=== PATIENT | female | born 1960 | race Caucasian/White ===

== ENCOUNTER 2020-04-30 17:47 | Inpatient (IN) ==
[2020-04-30] MEDS ORDERED: DILTIAZEM 50 MG/10 ML VIAL IV STA ×2 (18:24→20:19)
[2020-04-30] MEDS ORDERED: DILTIAZEM 25 MG/5 ML VIAL IV ONE (18:29)
[2020-04-30 18:36] LABS: Basophils # 0.1 10*3/uL (0.0-0.2); Basophils % 0.5 % (0.0-0.8); Eosinophils % 0.3 % (0.00-10.9); Hematocrit 36.4 VOL% (35.7-47.0); Hemoglobin 11.4 GM/DL (12.0-16.0); Immature Granulocytes % 0.5 %; Immature Granulocytes Absolute 0.06 #; Lymphocytes # 3.3 10*3/uL (1.4-4.0); Lymphocytes % 25.9 % (21.3-54.2); Mean Corpuscular HGB Conc 31.3 GM/DL (32-36); Mean Corpuscular Volume 86.9 FL (87-102); Mean Platelet Volume 9.9 FL (9.6-12.0); Monocytes % 10.5 % (1.7-12.7); NRBC # 0.05 10*3/uL; Neutrophils % 62.3 % (38.7-73.9); Platelet Count 454 T/CUMM (130-400); Red Blood Count 4.19 MC/CUMM (3.8-5.5); Red Cell Distribution Width 15.7 % (9.3-17.3); White Blood Count 12.8 T/CUMM (4-12)
[2020-04-30 18:44] LABS: INR 1.1; PT Patient Result 11.8 SECS (9.8-11.9)
[2020-04-30 19:02] LABS: Albumin 3.5 G/DL (3.4-5.0); Bilirubin,Total 0.8 MG/DL (0.2-1.0); Calcium 9.1 MG/DL (8.5-10.1); Osmolality,Calculated 268.2 MOS/KG (273-304); Thyroid Stimulating Hormone 3.12 uIU/ml (0.358-3.74)
[2020-04-30] MEDS: dilTIAZem INJ 125 MG in SODIUM CHLORIDE 0.9% 125 MG/100 ML BAG IV SCH (19:07)
[2020-04-30] MEDS ORDERED: DEXTROSE 50% 25 GM/50 ML VIAL IV PRN (20:01)
[2020-04-30] MEDS ORDERED: GLUCAGON 1 MG VIAL IM PRN (20:01)
[2020-04-30 20:17] LABS: Barbiturates Screen,Urine Negative (Negative); Benzodiazepines Screen,Urine Negative (Negative); Cannabinoid Screen,Urine Negative (Negative); Opiate Screen,Urine Positive (Negative); Phencyclidine Screen,Urine Negative (Negative)
[2020-04-30] MEDS ORDERED: amLODIPine 5 MG TABLET PO ONE (20:37)
[2020-04-30] MEDS ORDERED: cloNIDine 0.1 MG TABLET PO PRN (20:37)
[2020-04-30] MEDS: methylPREDNISolone SOD SUC 40 MG/1 ML VIAL IV SCH (21:15)
[2020-04-30] MEDS: ENOXAPARIN 80 MG/0.8 ML SYRINGE SUBCUT SCH (21:20)
[2020-04-30] MEDS: LEVOFLOXACIN INJ 750 MG in PREMIX 1 EACH IV SCH (21:23)
[2020-04-30] MEDS ORDERED: ACETAMINOPHEN 325 MG TABLET PO PRN (23:38)
[2020-04-30] MEDS ORDERED: LEVALBUTEROL 1.25 MG/3 ML NEB RESP TX PRN (23:38)
[2020-05-01] MEDS: ALBUTEROL/IPRATROPIUM 3 ML NEB RESP TX SCH ×4 (00:05→20:38)
[2020-05-01] MEDS: dilTIAZem INJ 125 MG in SODIUM CHLORIDE 0.9% 125 MG/100 ML BAG IV SCH ×3 (01:54→23:39)
[2020-05-01] MEDS: methylPREDNISolone SOD SUC 40 MG/1 ML VIAL IV SCH ×3 (04:34→23:09)
[2020-05-01 06:48] LABS: Basophils % 0.1 % (0.0-0.8); Hematocrit 34.6 VOL% (35.7-47.0); Hemoglobin 11.1 GM/DL (12.0-16.0); Immature Granulocytes % 0.6 %; Immature Granulocytes Absolute 0.05 #; Lymphocytes # 0.7 10*3/uL (1.4-4.0); Lymphocytes % 7.7 % (21.3-54.2); Mean Corpuscular HGB Conc 32.1 GM/DL (32-36); Mean Corpuscular Volume 86.7 FL (87-102); Mean Platelet Volume 9.7 FL (9.6-12.0); Monocytes % 2.4 % (1.7-12.7); NRBC # 0.02 10*3/uL; Neutrophils % 89.2 % (38.7-73.9); Platelet Count 388 T/CUMM (130-400); Red Blood Count 3.99 MC/CUMM (3.8-5.5); Red Cell Distribution Width 15.8 % (9.3-17.3); White Blood Count 9.1 T/CUMM (4-12)
[2020-05-01 07:14] LABS: Calcium 9.2 MG/DL (8.5-10.1); Risk Ratio 2.53; Thyroid Stimulating Hormone 0.454 uIU/ml (0.358-3.74); VLDL CHOLESTEROL 14.2 MG/DL
[2020-05-01] MEDS: ENOXAPARIN 80 MG/0.8 ML SYRINGE SUBCUT SCH ×2 (09:05→23:10)
[2020-05-01] MEDS ORDERED: ONDANSETRON 4 MG/2 ML VIAL IV PRN (09:11)
[2020-05-01] MEDS: MORPHINE 4 MG/1 ML VIAL IV PRN ×2 (17:57→23:15)
[2020-05-01] MEDS: LEVOFLOXACIN INJ 750 MG in PREMIX 1 EACH IV SCH (23:09)
[2020-05-02] MEDS: ALBUTEROL/IPRATROPIUM 3 ML NEB RESP TX SCH ×4 (00:27→19:05)
[2020-05-02] MEDS: methylPREDNISolone SOD SUC 40 MG/1 ML VIAL IV SCH ×3 (05:59→21:28)
[2020-05-02 06:16] LABS: Basophils % 0.1 % (0.0-0.8); Hematocrit 34.4 VOL% (35.7-47.0); Hemoglobin 10.5 GM/DL (12.0-16.0); Immature Granulocytes % 0.8 %; Lymphocytes # 0.5 10*3/uL (1.4-4.0); Lymphocytes % 4.2 % (21.3-54.2); Mean Corpuscular HGB Conc 30.5 GM/DL (32-36); Mean Corpuscular Volume 87.8 FL (87-102); Mean Platelet Volume 10.2 FL (9.6-12.0); Monocytes % 4.7 % (1.7-12.7); Neutrophils % 90.2 % (38.7-73.9); Platelet Count 413 T/CUMM (130-400); Red Blood Count 3.92 MC/CUMM (3.8-5.5); Red Cell Distribution Width 16.2 % (9.3-17.3); White Blood Count 12.4 T/CUMM (4-12)
[2020-05-02 06:37] LABS: Band Neutrophils 7 % (0-10); Lymphocytes 2 % (20-55); Segmented Neutrophils 85 % (50-85); Total Cells Counted 100
[2020-05-02 06:38] LABS: Anisocytosis 1+; Giant Platelets Few; Macrocytosis 1+; Platelet Estimate Normal; Polychromasia Slight
[2020-05-02 06:52] LABS: Osmolality,Calculated 276.7 MOS/KG (273-304)
[2020-05-02] MEDS ORDERED: POTASSIUM CHLORIDE 20 MEQ TABLET PO ONE (07:14)
[2020-05-02] MEDS: ENOXAPARIN 80 MG/0.8 ML SYRINGE SUBCUT SCH ×2 (09:25→21:35)
[2020-05-02] MEDS ORDERED: POTASSIUM CHLORIDE RIDER 10 MEQ in PREMIX 1 EACH IV ONE (10:24)
[2020-05-02] MEDS ORDERED: DIGOXIN 0.5 MG/2 ML AMP IV ONE (10:26)
[2020-05-02] MEDS: MORPHINE 4 MG/1 ML VIAL IV PRN (13:20)
[2020-05-02] MEDS: dilTIAZem INJ 125 MG in SODIUM CHLORIDE 0.9% 125 MG/100 ML BAG IV SCH ×2 (16:47→17:45)
[2020-05-02] MEDS: PANTOPRAZOLE 40 MG TABLET PO SCH (16:55)
[2020-05-02] MEDS: LEVOFLOXACIN INJ 750 MG in PREMIX 1 EACH IV SCH (21:27)
[2020-05-03] MEDS: ALBUTEROL/IPRATROPIUM 3 ML NEB RESP TX SCH ×4 (02:05→19:22)
[2020-05-03] MEDS: dilTIAZem INJ 125 MG in SODIUM CHLORIDE 0.9% 125 MG/100 ML BAG IV SCH (02:51)
[2020-05-03] MEDS: methylPREDNISolone SOD SUC 40 MG/1 ML VIAL IV SCH ×2 (05:31→17:11)
[2020-05-03 05:55] LABS: Basophils % 0.1 % (0.0-0.8); Hematocrit 33.9 VOL% (35.7-47.0); Hemoglobin 10.6 GM/DL (12.0-16.0); Immature Granulocytes Absolute 0.18 #; Lymphocytes # 0.5 10*3/uL (1.4-4.0); Lymphocytes % 2.6 % (21.3-54.2); Mean Corpuscular HGB Conc 31.3 GM/DL (32-36); Mean Corpuscular Volume 87.1 FL (87-102); Mean Platelet Volume 9.4 FL (9.6-12.0); Monocytes % 3.4 % (1.7-12.7); Neutrophils % 92.9 % (38.7-73.9); Platelet Count 466 T/CUMM (130-400); Red Blood Count 3.89 MC/CUMM (3.8-5.5); Red Cell Distribution Width 16.3 % (9.3-17.3); White Blood Count 17.6 T/CUMM (4-12)
[2020-05-03 06:18] LABS: Osmolality,Calculated 275.8 MOS/KG (273-304)
[2020-05-03 06:19] LABS: Calcium 9.1 MG/DL (8.5-10.1); Osmolality,Calculated 273.1 MOS/KG (273-304)
[2020-05-03 06:24] LABS: Hypochromasia 1+; Lymphocytes 5 % (20-55); Microcytosis 1+; Ovalocytes Slight; Platelet Estimate Adequate; Segmented Neutrophils 94 % (50-85); Total Cells Counted 100
[2020-05-03] MEDS: PANTOPRAZOLE 40 MG TABLET PO SCH (09:17)
[2020-05-03] MEDS: ENOXAPARIN 80 MG/0.8 ML SYRINGE SUBCUT SCH (09:17)
[2020-05-03] MEDS: APIXABAN 5 MG TABLET PO SCH ×2 (10:08→20:46)
[2020-05-03] MEDS: carvediloL 6.25 MG TABLET PO SCH ×2 (10:08→20:46)
[2020-05-03] MEDS ORDERED: lisinopriL 2.5 MG TABLET PO SCH (12:30)
[2020-05-03] MEDS: SACUBITRIL/VALSARTAN 49-51 MG TABLET PO SCH ×2 (12:37→20:47)
[2020-05-03] MEDS ORDERED: MAGNESIUM HYDROXIDE SUSP 30 ML UDCUP PO ONE (17:25)
[2020-05-03] MEDS: LEVOFLOXACIN INJ 750 MG in PREMIX 1 EACH IV SCH (20:47)
[2020-05-04] MEDS: ALBUTEROL/IPRATROPIUM 3 ML NEB RESP TX SCH ×2 (00:04→07:50)
[2020-05-04] MEDS ORDERED: LACTULOSE 20 GM/30 ML UDCUP PO ONE (00:38)
[2020-05-04] MEDS: methylPREDNISolone SOD SUC 40 MG/1 ML VIAL IV SCH (05:07)
[2020-05-04 06:48] LABS: Basophils % 0.1 % (0.0-0.8); Hematocrit 37.1 VOL% (35.7-47.0); Hemoglobin 11.5 GM/DL (12.0-16.0); Immature Granulocytes % 0.7 %; Lymphocytes # 0.7 10*3/uL (1.4-4.0); Lymphocytes % 5.3 % (21.3-54.2); Mean Corpuscular Volume 86.9 FL (87-102); Mean Platelet Volume 9.2 FL (9.6-12.0); Monocytes % 6.1 % (1.7-12.7); NRBC # 0.02 10*3/uL; Neutrophils % 87.8 % (38.7-73.9); Platelet Count 416 T/CUMM (130-400); Red Blood Count 4.27 MC/CUMM (3.8-5.5); White Blood Count 13.7 T/CUMM (4-12)
[2020-05-04 07:17] LABS: Calcium 8.5 MG/DL (8.5-10.1); Osmolality,Calculated 275.8 MOS/KG (273-304)
[2020-05-04] MEDS: APIXABAN 5 MG TABLET PO SCH (09:18)
[2020-05-04] MEDS: PANTOPRAZOLE 40 MG TABLET PO SCH (09:18)
[2020-05-04] MEDS: SACUBITRIL/VALSARTAN 49-51 MG TABLET PO SCH (09:18)
[2020-05-04] MEDS: carvediloL 6.25 MG TABLET PO SCH (09:18)
[2020-05-04] MEDS ORDERED: carvediloL 12.5 MG TABLET PO SCH (10:30)
[2020-05-04] MEDS ORDERED: METOPROLOL TARTRATE 5 MG/5 ML VIAL IV ONE (10:30)
[2020-05-04 11:59] VITALS: BP 111/56
== END 2020-05-04 15:22 | disposition home or self-care (01) | DRG 308 ==
LOC: N.EDINP 17:47 → N.ED 17:47 → SUATTDRO 20:01 → N.EDINP 21:40 → N.TELEN 21:42
PROVIDERS: ADMIT Internal Medicine; ATTEND Internal Medicine Geriatric Medicine

== ENCOUNTER 2021-05-29 11:08 | Observation (INO) ==
[2021-05-29 11:41] LABS: Basophils % 0.4 % (0.0-0.8); Eosinophils # 0.1 10*3/uL (0.0-0.87); Eosinophils % 0.6 % (0.00-10.9); Hematocrit 47.1 VOL% (35.7-47.0); Hemoglobin 14.8 GM/DL (12.0-16.0); Immature Granulocytes % 0.3 %; Immature Granulocytes Absolute 0.02 #; Lymphocytes # 1.7 10*3/uL (1.4-4.0); Lymphocytes % 22.3 % (21.3-54.2); Mean Corpuscular HGB Conc 31.4 GM/DL (32-36); Mean Corpuscular Volume 90.9 FL (87-102); Mean Platelet Volume 9.1 FL (9.6-12.0); Monocytes % 12.3 % (1.7-12.7); Neutrophils % 64.1 % (38.7-73.9); Platelet Count 374 T/CUMM (130-400); Red Blood Count 5.18 MC/CUMM (3.8-5.5); Red Cell Distribution Width 14.8 % (9.3-17.3); White Blood Count 7.7 T/CUMM (4-12)
[2021-05-29 11:52] LABS: INR 1.1; PT Patient Result 11.9 SECS (10.5-12.0); Partial Thromboplastin Time 39.9 SECS (23.8-32.1)
[2021-05-29 12:12] LABS: Albumin 3.7 G/DL (3.4-5.0); Bilirubin,Total 0.5 MG/DL (0.20-1.00); Calcium 9.3 MG/DL (8.5-10.1); Osmolality,Calculated 270.8 MOS/KG (273-304); Potassium 4.5 MMOL/L (3.5-5.1); Total Protein 7.1 G/DL (6.4-8.2)
[2021-05-29] MEDS ORDERED: MAGNESIUM SULF RIDER 2 GM/50 ML PREMIX IV STA (12:14)
[2021-05-29] MEDS ORDERED: DILTIAZEM 50 MG/10 ML VIAL IV STA (12:14)
[2021-05-29] MEDS: DILTIAZEM INJ 100 MG in SODIUM CHLORIDE 0.9% 100 ML IV SCH ×2 (12:40→22:09)
[2021-05-29 13:44] LABS: Bacteria,Urine Many /HPF (Few); Bilirubin,Urine Negative (Negative); Blood, Urine Negative (Negative); Glucose,Urine (UA) Negative (Negative); Ketones,Urine Negative (Negative); Nitrite,Urine Negative (Negative); Protein,Urine Negative; RBC,Urine 2 /HPF (0-4); Squamous Epithelial Cell,Urine Occasional /HPF (0-10); Urine Appearance CLEAR (Clear); Urine Color Straw (Yellow); Urine Specific Gravity 1.003 (1.001-1.035); Urine Urobilinogen < 2.0 EU/DL (0.2-1.0)
[2021-05-29] MEDS ORDERED: POTASSIUM CHLORIDE 20 MEQ TABLET PO PRN (13:47)
[2021-05-29] MEDS ORDERED: MAGNESIUM SULF RIDER 2 GM/50 ML PREMIX IV PRN (13:47)
[2021-05-29] MEDS ORDERED: MORPHINE 2 MG/1 ML SYRINGE IV PRN (13:47)
[2021-05-29] MEDS ORDERED: ONDANSETRON 4 MG/2 ML VIAL IV PRN (13:47)
[2021-05-29] MEDS ORDERED: ALUMINUM/MAGNES/SIMETH MAX STR 30 ML UDCUP PO PRN (13:47)
[2021-05-29] MEDS ORDERED: diphenhydrAMINE CAP 25 MG CAPSULE PO PRN (13:47)
[2021-05-29] MEDS ORDERED: ZALEPLON 5 MG CAPSULE PO PRN (13:47)
[2021-05-29] MEDS ORDERED: MAGNESIUM SULF RIDER 4 GM/100 ML PREMIX IV PRN (13:47)
[2021-05-29] MEDS ORDERED: LIDOCAINE 5% PATCH TRANSDERM PRN (13:55)
[2021-05-29] MEDS ORDERED: PROMETHAZINE 25 MG TABLET PO PRN (13:55)
[2021-05-29 14:03] LABS: Barbiturates Screen,Urine Negative (Negative); Benzodiazepines Screen,Urine Negative (Negative); Cannabinoid Screen,Urine Negative (Negative); Opiate Screen,Urine Positive (Negative); Phencyclidine Screen,Urine Negative (Negative)
[2021-05-29] MEDS ORDERED: SODIUM CHLORIDE 0.45% 1,000 ML IV SCH ×2 (14:30→20:10)
[2021-05-29] MEDS: NICOTINE 21 MG/24 HR PATCH TRANSDERM SCH (16:55)
[2021-05-29] MEDS: ASCORBIC ACID 500 MG TABLET PO SCH ×2 (16:55→21:09)
[2021-05-29] MEDS: DILTIAZEM 30 MG TABLET PO SCH ×3 (16:55→23:21)
[2021-05-29] MEDS: DRONEDARONE 400 MG TABLET PO SCH (18:10)
[2021-05-29] MEDS ORDERED: IPRATROPIUM 500 MCG/2.5 ML NEB RESP TX PRN (19:00)
[2021-05-29] MEDS: SACUBITRIL/VALSARTAN 49-51 MG TABLET PO SCH (22:09)
[2021-05-29] MEDS: APIXABAN 5 MG TABLET PO SCH (22:09)
[2021-05-30 04:47] LABS: Basophils % 0.6 % (0.0-0.8); Eosinophils # 0.1 10*3/uL (0.0-0.87); Eosinophils % 1.3 % (0.00-10.9); Hematocrit 44.1 VOL% (35.7-47.0); Immature Granulocytes % 0.3 %; Immature Granulocytes Absolute 0.02 #; Lymphocytes # 2.6 10*3/uL (1.4-4.0); Lymphocytes % 39.3 % (21.3-54.2); Mean Corpuscular HGB Conc 31.7 GM/DL (32-36); Mean Corpuscular Volume 91.1 FL (87-102); Mean Platelet Volume 9.3 FL (9.6-12.0); Monocytes % 12.4 % (1.7-12.7); Neutrophils % 46.1 % (38.7-73.9); Platelet Count 324 T/CUMM (130-400); Red Blood Count 4.84 MC/CUMM (3.8-5.5); Red Cell Distribution Width 14.6 % (9.3-17.3); White Blood Count 6.7 T/CUMM (4-12)
[2021-05-30 05:05] LABS: Calcium 8.8 MG/DL (8.5-10.1); Osmolality,Calculated 271.7 MOS/KG (273-304); Potassium 3.8 MMOL/L (3.5-5.1)
[2021-05-30 05:22] LABS: Calcium 8.7 MG/DL (8.5-10.1); Osmolality,Calculated 271.7 MOS/KG (273-304); Potassium 3.8 MMOL/L (3.5-5.1); Total Protein 6.1 G/DL (6.4-8.2)
[2021-05-30] MEDS ORDERED: MONTELUKAST 10 MG TABLET PO SCH (09:00)
[2021-05-30] MEDS ORDERED: PANTOPRAZOLE 40 MG TABLET PO SCH (09:00)
[2021-05-30] MEDS: DILTIAZEM 30 MG TABLET PO SCH ×2 (09:06→11:15)
[2021-05-30] MEDS: APIXABAN 5 MG TABLET PO SCH (09:09)
[2021-05-30] MEDS: SACUBITRIL/VALSARTAN 49-51 MG TABLET PO SCH (09:09)
[2021-05-30] MEDS: ASCORBIC ACID 500 MG TABLET PO SCH (09:09)
[2021-05-30] MEDS: DRONEDARONE 400 MG TABLET PO SCH (09:09)
[2021-05-30] MEDS: NICOTINE 21 MG/24 HR PATCH TRANSDERM SCH (09:10)
[2021-05-30] MEDS: DILTIAZEM INJ 100 MG in SODIUM CHLORIDE 0.9% 100 ML IV SCH (11:16)
[2021-05-30] MEDS ORDERED: carvediloL 6.25 MG TABLET PO SCH (11:18)
[2021-05-30 11:47] VITALS: BP 123/71
[2021-05-30] MEDS ORDERED: SACUBITRIL/VALSARTAN 49-51 MG TABLET PO SCH (21:00)
[2021-05-30] MEDS ORDERED: DILTIAZEM CD 120 MG CAPSULE PO SCH (21:00)
== END 2021-05-30 15:21 | disposition home or self-care (01) ==
LOC: N.EDINP 11:08 → N.ED 11:08 → N.TELEN 22:46
PROVIDERS: ADMIT Internal Medicine Cardiovascular Disease; ATTEND Internal Medicine Cardiovascular Disease